=== PATIENT | female | born 1960 | race Caucasian/White ===

== ENCOUNTER 2019-05-04 15:19 | Outpatient (CLI) | payer BC ==
[~2019-05-04 15:19] MED LIST: ASCO10004 PO; FISH1CAP PO; HYDR5SOL PO; MULT-464 PO
[2019-05-04] MEDS ORDERED: IRON PO (15:49)
[2019-05-04] MEDS ORDERED: VITAMIN D PO (15:49)
[2019-05-04] MEDS ORDERED: MULT-709 PO (15:49)
[2019-05-04 16:42] LABS: BASOPHILS # (AUTO) 0.03 x10^3/uL (0-0.1); BASOPHILS % (AUTO) 0 % (0-1); EOSINOPHILS # (AUTO) 0.16 x10^3/uL (0-0.4); EOSINOPHILS % (AUTO) 2 % (1-7); LYMPHOCYTES # (AUTO) 1.66 x10^3/uL (1-3.4); LYMPHOCYTES % (AUTO) 20 % (22-44); MD NO; MEAN CORPUSCULAR HEMOGLOBIN 28.6 pg (27.0-34.8); MEAN CORPUSCULAR VOLUME 84.1 fL (80-100); MEAN PLATELET VOLUME 8.2 fL (7.4-10.4); MONOCYTES # (AUTO) 0.56 x10^3/uL (0.2-0.8); MONOCYTES % (AUTO) 7 % (2-9); NEUTROPHILS # (AUTO) 5.75 x10^3/uL (1.8-6.8); NEUTROPHILS % (AUTO) 71 % (42-75); PLATELET COUNT 267 x10^3/uL (130-400); RED BLOOD COUNT 4.43 x10^6/uL (3.82-5.3); RED CELL DISTRIBUTION WIDTH 15.3 % (9.6-15.2)
[2019-05-04 16:45] LABS: ANION GAP 7 mmol/L (5-15); CALCIUM 8.9 mg/dL (8.5-10.1); CHLORIDE 109 mmol/L (98-107); CREATININE 1.12 mg/dL (0.55-1.02); INTERNATIONAL NORMALIZED RATIO 1.01 (0.93-1.1); PROTHROMBIN TIME 10.6 Seconds (9.6-11.5)
== END 2019-05-04 23:59 | disposition home or self-care (01) ==
LOC: STAR 15:19
PROVIDERS: ATTEND Orthopaedic Surgery
DX: Z01.818 Encounter for other preprocedural examination (principal); M17.11 Unilateral primary osteoarthritis, right knee
CPT/HCPCS: 36415; 80048; 83036; 85025; 85610; 85730; 87081; 87389; 93005

== ENCOUNTER 2019-05-17 09:38 | Observation (INO) | payer BC ==
[~2019-05-17] VITALS: Ht 170.2 cm; Wt 115.0 kg
[~2019-05-17 09:38] MED LIST changes: +EPINEPHRINE 1 MG/ML, 1ML ONE; +IRON PO; +KETOROLAC 60 MG/2 ML ONE; +MULT-709 PO; +ROPIvacaine/PF 0.2%, 20 ML ONE; +SODIUM CHLORIDE 0.9% 50 ML ONE; +TRANEXAMIC ACID 100 MG/ML, 10ML ONE; +VANCOMYCIN 1,000 MG ONE; +VITAMIN D PO
[2019-05-17] MEDS ORDERED: LACTATED RINGERS 1,000 ML IV SCH (10:24)
[2019-05-17] MEDS ORDERED: ACETAMINOPHEN 500 MG TABLET PO ONE (10:30)
[2019-05-17] MEDS ORDERED: GABAPENTIN 300 MG CAPSULE PO ONE (10:30)
[2019-05-17] MEDS ORDERED: LIDOCAINE-MPF 1%, 2ML INFIL ONE (10:30)
[2019-05-17] MEDS ORDERED: MIDAZOLAM 1 MG/ML, 2ML ONE (10:48)
[2019-05-17] MEDS ORDERED: FENTANYL PF 250 MCG/5ML ONE ×2 (10:48→13:35)
[2019-05-17] MEDS ORDERED: NEOSTIGMINE 1 MG/ML, 10ML ONE (10:51)
[2019-05-17] MEDS ORDERED: GLYCOPYRROLATE 0.2MG/1ML, 5ML ONE (10:51)
[2019-05-17] MEDS ORDERED: CEFAZOLIN 1,000 MG ONE (10:51)
[2019-05-17] MEDS ORDERED: ONDANSETRON 2MG/ML, 2ML ONE (10:51)
[2019-05-17] MEDS ORDERED: DEXAMETHASONE 4 MG/ML, 1ML ONE (10:51)
[2019-05-17] MEDS ORDERED: PROPOFOL 10 MG/ML, 20ML ONE (10:51)
[2019-05-17] MEDS ORDERED: ROPIvacaine/PF 0.2%, 20 ML ONE (10:51)
[2019-05-17] MEDS ORDERED: ROCURONIUM 10MG/ML,5ML ONE (10:51)
[2019-05-17] MEDS ORDERED: MEPERIDINE/PF 25MG/ML,1ML IVPush PRN (12:30)
[2019-05-17] MEDS ORDERED: HALOPERIDOL 5 MG/ML IV PRN (12:30)
[2019-05-17] MEDS ORDERED: PROMETHAZINE 25 MG/ML, 1ML IV PRN (12:30)
[2019-05-17] MEDS ORDERED: LABETALOL 5MG/ML, 20ML IV PRN (12:30)
[2019-05-17] MEDS ORDERED: OXYcodone 5 MG/5 ML ORAL.SOL UDC PO PRN (12:30)
[2019-05-17] MEDS ORDERED: hydrALAzine 20 MG/ML, 1ML IV PRN (12:30)
[2019-05-17] MEDS ORDERED: MORPHINE SULFATE 4 MG/ML, 1ML IVPush PRN (12:30)
[2019-05-17] MEDS ORDERED: FENTANYL PF 100 MCG/2ML IV PRN (12:30)
[2019-05-17] MEDS ORDERED: HYDROmorphone 1 MG/ML, 1ML INJ IVPush PRN (13:30)
[2019-05-17] MEDS ORDERED: SENNA/DOCUSATE TABLET PO PRN (13:30)
[2019-05-17] MEDS ORDERED: PROMETHAZINE 12.5 MG SUPP PR PRN (13:30)
[2019-05-17] MEDS ORDERED: DIPHENHYDRAMINE 25 MG CAPSULE PO PRN (13:30)
[2019-05-17] MEDS ORDERED: ACETAMINOPHEN 650 MG/20.3 ML UDC PO PRN (13:30)
[2019-05-17] MEDS ORDERED: ALUMINUM/MAG/SIMETHICONE 30 ML UDC PO PRN (13:30)
[2019-05-17] MEDS ORDERED: ONDANSETRON 4 MG TABLET PO PRN (13:30)
[2019-05-17] MEDS ORDERED: MAGNESIUM HYDROXIDE 8%, 30ML UDC PO PRN (13:30)
[2019-05-17] MEDS ORDERED: POLYETHYLENE GLYCOL 17 GM PACKET PO PRN (13:30)
[2019-05-17] MEDS ORDERED: TRANEXAMIC ACID 1,000 MG in SODIUM CHLORIDE 0.9% 100 ML IVPB ONE (13:30)
[2019-05-17] MEDS ORDERED: DIPHENHYDRAMINE 50 MG/ML, 1ML IVPush PRN (13:30)
[2019-05-17] MEDS ORDERED: ONDANSETRON 2MG/ML, 2ML IV PRN (13:30)
[2019-05-17] MEDS ORDERED: PSYLLIUM PACKET PO PRN (13:30)
[2019-05-17] MEDS ORDERED: FENTANYL PF 100 MCG/2ML ONE ×2 (13:56→15:40)
[2019-05-17] MEDS ORDERED: HYDROmorphone 1 MG/ML, 1ML VIAL ONE (14:41)
[2019-05-17] MEDS ORDERED: OXYcodone 5 MG/5 ML ORAL.SOL UDC ONE (14:41)
[2019-05-17] MEDS: HYDROmorphone 2 MG/ML, 1ML IVPush PRN ×3 (14:50→15:27)
[2019-05-17] MEDS: KETOROLAC 30 MG/1 ML IV SCH ×2 (16:45→23:10)
[2019-05-17] MEDS: POTASSIUM CHLORIDE 20 MEQ in D5%-0.45% NACL 1,000 ML IV SCH (18:12)
[2019-05-17] MEDS: ASPIRIN 81 MG TABLET EC PO SCH ×2 (18:12→20:33)
[2019-05-17] MEDS: OXYcodone IR 5MG TABLET PO PRN ×2 (19:08→23:10)
[2019-05-17 20:09] VITALS: BP 129/80
[2019-05-17] MEDS: CEFAZOLIN PMX 1GM/50ML 50 ML IVPB SCH (20:22)
[2019-05-17] MEDS: DOCUSATE 100 MG CAPSULE PO SCH (20:33)
[2019-05-17 23:55] VITALS: BP 102/58
[2019-05-18] MEDS: POTASSIUM CHLORIDE 20 MEQ in D5%-0.45% NACL 1,000 ML IV SCH (02:24)
[2019-05-18 04:12] VITALS: BP 92/56
[2019-05-18] MEDS: CEFAZOLIN PMX 1GM/50ML 50 ML IVPB SCH (04:29)
[2019-05-18] MEDS ORDERED: DEXAMETHASONE 4 MG/ML, 1ML IVPush ONE (06:00)
[2019-05-18] MEDS: DOCUSATE 100 MG CAPSULE PO SCH (07:34)
[2019-05-18] MEDS: ASPIRIN 81 MG TABLET EC PO SCH (07:34)
[2019-05-18] MEDS: OXYcodone IR 5MG TABLET PO PRN ×2 (07:36→12:10)
[2019-05-18] MEDS: KETOROLAC 30 MG/1 ML IV SCH (07:37)
[2019-05-18 07:48] VITALS: BP 97/59
[2019-05-18] MEDS ORDERED: TAMSULOSIN 0.4 MG CAP.ER.24H PO SCH (09:00)
[2019-05-18] MEDS ORDERED: FLU VACC QS2019-20 36MOS UP/PF 0.5 ML IM-VACC ONE (11:00)
== END 2019-05-18 12:21 | disposition home or self-care (01) ==
LOC: OUT 09:38 → ORIP 13:23 → 4NE 16:18 → DCLOUNGE 05-18 12:14
PROVIDERS: ADMIT Orthopaedic Surgery; ATTEND Orthopaedic Surgery
DX: M17.11 Unilateral primary osteoarthritis, right knee (principal); Z23 Encounter for immunization; Z79.82 Long term (current) use of aspirin; Z68.37 Body mass index [BMI] 37.0-37.9, adult
CPT/HCPCS: 27447; 36415; 73560; 85014; 85018; 90471; 90686; 96365; 96366; 96375; 96376; 97110; 97161; 97165; C1713; C1776; G0378; J0171; J0690; J1100; J1170; J1885; J2250; J2405; J2704; J2710; J2795; J3010; J3480; J7120; J3370